=== PATIENT | female | born 1995 | race Two or more races ===

== ENCOUNTER 2024-04-06 21:53 | Emergency (ER) | payer OTHER ==
[~2024-04-06] VITALS: Ht 162.6 cm; Wt 77.1 kg
[2024-04-06] MEDS ORDERED: FAMOTIDINE/PF 20 MG in 0.9 % SODIUM CHLORIDE 8 ML IV PUSH STA (22:59)
[2024-04-06] MEDS ORDERED: RINGERS SOLUTION,LACTATED 1,000 ML IV SCH (23:00)
[2024-04-06] MEDS ORDERED: ONDANSETRON HCL 2 MG/ML VIAL IV ONE (23:00)
[2024-04-06] MEDS ORDERED: METOCLOPRAMIDE HCL 10 MG in DEXTROSE 5 % IN WATER 50 ML IV ONE (23:45)
[2024-04-06 23:49] LABS: HEMATOCRIT 36.8 % (36.0-45.00); HEMOGLOBIN 11.5 g/dL (12.0-15.00); MEAN CELL VOLUME 61.8 fL (80.00-100.00); MEAN CORPUSCULAR HEMOGLOBIN 19.3 pg (27.00-32.0); MEAN CORPUSCULAR HGB CONC 31.1 g/dl (32.0-36.0); PLATELET COUNT 429 K/uL (150-450); RED BLOOD COUNT 5.95 M/uL (4.00-6.00); RED CELL DISTRIBUTION WIDTH 17.4 % (11.5-14.5)
[2024-04-07 00:22] LABS: BILIRUBIN TOTAL 0.87 mg/dL (0.3-1.2); CALCIUM 9.6 mg/dL (8.5-10.1); CREATININE SERUM 0.63 mg/dL (0.55-1.02); GFR 113.35; GLOBULINA 4.8 G/DL (2.4-3.5); POTASSIUM 3.53 mEq/L (3.5-5.1); TOTAL PROTEIN 8.8 gm/dL (6.4-8.2)
== END 2024-04-07 02:00 | disposition home or self-care (01) ==
LOC: ER 21:55
PROVIDERS: General Practice
DX: O21.0 Mild hyperemesis gravidarum (principal); Z3A.09 9 weeks gestation of pregnancy

== ENCOUNTER 2024-04-18 06:18 | Emergency (ER) | payer OTHER ==
[~2024-04-18] VITALS: Ht 157.5 cm; Wt 81.6 kg
[2024-04-18] MEDS ORDERED: 0.9 % SODIUM CHLORIDE 1,000 ML IV STA (07:35)
[2024-04-18] MEDS ORDERED: PROMETHAZINE HCL 50 MG/ML AMPUL IM STA (07:36)
[2024-04-18] MEDS ORDERED: METOCLOPRAMIDE HCL 5 MG/ML VIAL IM STA (07:36)
[2024-04-18] MEDS ORDERED: LOPERAMIDE HCL 2 MG CAPSULE PO STA (07:37)
[2024-04-18] MEDS ORDERED: LOPERAMIDE HCL 2 MG CAPSULE PO ONE (07:41)
[2024-04-18] MEDS ORDERED: METOCLOPRAMIDE HCL 5 MG/ML VIAL ONE (07:42)
[2024-04-18] MEDS ORDERED: PROMETHAZINE HCL 50 MG/ML AMPUL IM ONE (07:42)
[2024-04-18 09:15] LABS: CALCIUM 10.2 mg/dL (8.5-10.1); CREATININE SERUM 0.61 mg/dL (0.55-1.02); GFR 117.65; POTASSIUM 4.71 mEq/L (3.5-5.1)
[2024-04-18 10:04] LABS: HEMATOCRIT 39.6 % (36.0-45.00); HEMOGLOBIN 12.3 g/dL (12.0-15.00); MEAN CORPUSCULAR HEMOGLOBIN 19.4 pg (27.00-32.0); MEAN CORPUSCULAR HGB CONC 31.2 g/dl (32.0-36.0); PLATELET COUNT 422 K/uL (150-450); RED BLOOD COUNT 6.35 M/uL (4.00-6.00); RED CELL DISTRIBUTION WIDTH 17.9 % (11.5-14.5)
[2024-04-18 10:09] LABS: MEAN CELL VOLUME 62.3 fL (80.00-100.00)
[2024-04-18] MEDS ORDERED: ZOFRAN8 MG PO (11:44)
[2024-04-18] MEDS ORDERED: PEPCID AC20 MG PO (11:44)
== END 2024-04-18 12:15 | disposition home or self-care (01) ==
LOC: ER 06:20
DX: K52.9 Noninfective gastroenteritis and colitis, unspecified (principal); O21.0 Mild hyperemesis gravidarum

== ENCOUNTER → 2024-07-07 08:33 | Outpatient (CLI) | payer OTHER ==
[~2024-07-07 08:33] MED LIST: PEPCID AC20 MG PO; ZOFRAN8 MG PO
== END | disposition home or self-care (01) ==
LOC: PRENATAL 08:33
PROVIDERS: ATTEND Obstetrics & Gynecology Maternal & Fetal Medicine
DX: O44.00 Complete placenta previa NOS or without hemorrhage, unspecified trimester (principal); O30.90 Multiple gestation, unspecified, unspecified trimester; O99.019 Anemia complicating pregnancy, unspecified trimester; Z3A.20 20 weeks gestation of pregnancy

== ENCOUNTER → 2024-08-17 | Outpatient (CLI) | payer OTHER | END | disposition home or self-care (01) | LOC: PRENATAL 15:06 | PROVIDERS: ATTEND Obstetrics & Gynecology Maternal & Fetal Medicine | DX: O26.849 Uterine size-date discrepancy, unspecified trimester (principal); O36.8199 Decreased fetal movements, unspecified trimester, other fetus; O30.90 Multiple gestation, unspecified, unspecified trimester; O99.019 Anemia complicating pregnancy, unspecified trimester; O13.9 Gestational [pregnancy-induced] hypertension without significant proteinuria, unspecified trimester; Z3A.26 26 weeks gestation of pregnancy ==

== ENCOUNTER → 2024-09-02 08:31 | Outpatient (CLI) | payer OTHER ==
[~2024-09-02 08:31] MED LIST changes: +IRON18 M1 PO; +PRENATAL TABLE1 EAC1 PO
== END | disposition home or self-care (01) ==
LOC: PRENATAL 08:31
PROVIDERS: ATTEND Obstetrics & Gynecology Maternal & Fetal Medicine
DX: O26.849 Uterine size-date discrepancy, unspecified trimester (principal); O36.8199 Decreased fetal movements, unspecified trimester, other fetus; O30.90 Multiple gestation, unspecified, unspecified trimester; O13.9 Gestational [pregnancy-induced] hypertension without significant proteinuria, unspecified trimester; O36.5990 Maternal care for other known or suspected poor fetal growth, unspecified trimester, not applicable or unspecified; Z3A.28 28 weeks gestation of pregnancy

== ENCOUNTER 2024-09-02 10:08 | Inpatient (IN) | payer OTHER ==
[~2024-09-02] VITALS: Ht 157.5 cm; Wt 95.3 kg
[~2024-09-02 10:08] MED LIST changes: -IRON18 M1 PO; -PRENATAL TABLE1 EAC1 PO
[2024-09-02] MEDS ORDERED: BETAMETHASONE ACETATE,SOD PHOS 30 MG/5 ML ML IM STA (10:11)
[2024-09-02] MEDS ORDERED: SODIUM CHLORIDE 0.45 % 1,000 ML IV SCH (10:15)
[2024-09-02 10:23] VITALS: BP 137/95; O2SAT 99
[2024-09-02] MEDS ORDERED: PRENATAL TABLE1 EAC1 PO (11:00)
[2024-09-02] MEDS ORDERED: IRON18 M1 PO (11:00)
[2024-09-02 11:28] LABS: BASO % 0.3 % (0.1-1.2); EOS # 0.09 (0.04-0.54); EOS % 0.8 % (0.7-7.0); HEMATOCRIT 35.7 % (34.1-44.9); LYMPH # 2.72 (1.18-3.74); LYMPH % 23.4 % (19.3-53.1); MEAN CORPUSCULAR HEMOGLOBIN 22.2 pg (25.6-32.2); MONO # 1.05 (0.24-0.82); NEUT # 7.67 (1.56-6.13); NEUT % 66.1 % (34.0-71.1); PLATELET COUNT 247 K/uL (163-369); RED BLOOD COUNT 4.96 M/uL (3.93-5.22)
[2024-09-02 11:30] LABS: URINE APPEARANCE Clear; URINE BILIRRUBIN Negative (NEGATIVE); URINE BLOOD Negative; URINE COLOR Yellow; URINE GLUCOSE Negative (NEGATIVE); URINE KETONE Negative (NEGATIVE); URINE LEUKOCYTE Small; URINE NITRATE Negative; URINE PROTEIN Negative (NEGATIVE); URINE UROBILINOGEN 0.2 E.U./dl
[2024-09-02 11:31] LABS: URINE EPITHELIAL CELLS 26.9 uL (0.0-38.8); URINE RBC 25.3 uL (0.0-20.8); URINE WBC 20.4 uL (0.0-23.2)
[2024-09-02 11:42] LABS: URINE CAST 0.14 uL (0.0-1.40); URINE YEAST FEW /hpf
[2024-09-02 11:52] LABS: FIBRINOGEN 486 mg/dL (187.0-446.0); INR < 0.93; PARTIAL THROMBOPLASTIN TIME 26.5 SECONDS (22.0-34.0); PROTHROMBIN TIME 10.2 SECONDS (9.0-11.5)
[2024-09-02 12:05] LABS: ALBUMIN 2.6 gm/dL (3.4-5.0); BILIRUBIN TOTAL 0.57 mg/dL (0.3-1.2); CALCIUM 8.6 mg/dL (8.5-10.1); CREATININE SERUM 0.54 mg/dL (0.55-1.02); GFR 135.42; GLOBULINA 3.6 G/DL (2.4-3.5); POTASSIUM 3.61 mEq/L (3.5-5.1); TOTAL PROTEIN 6.2 gm/dL (6.4-8.2)
[2024-09-02 15:30] VITALS: BP 124/77
[2024-09-02 19:35] VITALS: BP 143/83
[2024-09-02 23:21] VITALS: BP 127/78
[2024-09-03 04:06] VITALS: BP 125/83
[2024-09-03 06:18] VITALS: BP 122/74; O2SAT 97
[2024-09-03] MEDS ORDERED: LABETALOL HCL 100 MG TABLET PO SCH (09:00)
[2024-09-03] MEDS ORDERED: BETAMETHASONE ACETATE,SOD PHOS 30 MG/5 ML ML IM ONE (10:30)
[2024-09-03 11:00] VITALS: BP 110/71
[2024-09-03 11:21] LABS: URINE PROT QUANT 24HR 9.5 MG/DL
[2024-09-03 11:23] LABS: URINE PROT QUANT 24 HR 275.5 MG/24HR (42-225)
[2024-09-03 15:40] VITALS: BP 135/78
[2024-09-03] MEDS ORDERED: ACETAMINOPHEN 500 MG GEL..CAP PO ONE (19:00)
[2024-09-03 20:00] VITALS: BP 133/84
[2024-09-03 23:40] VITALS: BP 123/78
[2024-09-04 03:22] VITALS: BP 148/83
[2024-09-04] MEDS ORDERED: LABETALOL HCL100 MG PO (06:38)
[2024-09-04 07:22] VITALS: BP 131/82; O2SAT 97
== END 2024-09-04 08:41 | disposition home or self-care (01) | DRG 833 ==
LOC: LDR 10:08
PROVIDERS: ADMIT Obstetrics & Gynecology; ATTEND Obstetrics & Gynecology
PROC: 4A1HXCZ Monitoring of Products of Conception, Cardiac Rate, External Approach (ICD-10-PCS; principal; 2024-09-02)
DX: O36.5932 Maternal care for other known or suspected poor fetal growth, third trimester, fetus 2 (principal); O30.043 Twin pregnancy, dichorionic/diamniotic, third trimester; O13.3 Gestational [pregnancy-induced] hypertension without significant proteinuria, third trimester; Z3A.28 28 weeks gestation of pregnancy

== ENCOUNTER 2024-09-05 08:46 | Inpatient (IN) | payer OTHER ==
[~2024-09-05] VITALS: Ht 157.5 cm; Wt 95.3 kg
[~2024-09-05 08:46] MED LIST changes: -POVIDONE-IODINE 118 ML BOTT TOP ONE
[2024-09-05 09:00] VITALS: BP 138/93
[2024-09-05] MEDS ORDERED: MAGNESIUM SULFATE IN WATER 500 ML IV SCH (09:00)
[2024-09-05] MEDS ORDERED: RINGERS SOLUTION,LACTATED 1,000 ML IV SCH (09:00)
[2024-09-05] MEDS ORDERED: MAGNESIUM SULFATE IN WATER 4 GM/100 ML PIGGYBACK IV ONE (09:00)
[2024-09-05 09:22] LABS: PH,URINE 7.5 (5.0-8.0); URINE APPEARANCE Clear; URINE BILIRRUBIN Negative (NEGATIVE); URINE BLOOD Negative; URINE COLOR Yellow; URINE GLUCOSE Negative (NEGATIVE); URINE KETONE Negative (NEGATIVE); URINE LEUKOCYTE Large; URINE NITRATE Negative; URINE PROTEIN Negative (NEGATIVE); URINE UROBILINOGEN 0.2 E.U./dl
[2024-09-05 09:26] LABS: URINE EPITHELIAL CELLS 26.1 uL (0.0-38.8); URINE WBC 105.6 uL (0.0-23.2)
[2024-09-05 09:28] LABS: URINE CAST 0.29 uL (0.0-1.40); URINE RBC 1.1 uL (0.0-20.8)
[2024-09-05 09:47] LABS: ALBUMIN 2.7 gm/dL (3.4-5.0); BILIRUBIN TOTAL 0.43 mg/dL (0.3-1.2); CALCIUM 8.5 mg/dL (8.5-10.1); CREATININE SERUM 0.52 mg/dL (0.55-1.02); GFR 141.45; GLOBULINA 3.4 G/DL (2.4-3.5); POTASSIUM 3.68 mEq/L (3.5-5.1); TOTAL PROTEIN 6.1 gm/dL (6.4-8.2)
[2024-09-05 09:52] LABS: INR < 0.93
[2024-09-05] MEDS ORDERED: KETOROLAC TROMETHAMINE 60 MG VIAL IM ONE ×2 (09:53→10:05)
[2024-09-05 11:08] LABS: BASO % 0.3 % (0.1-1.2); EOS # 0.01 (0.04-0.54); EOS % 0.1 % (0.7-7.0); HEMATOCRIT 32.2 % (34.1-44.9); LYMPH # 3.46 (1.18-3.74); LYMPH % 22.7 % (19.3-53.1); MEAN CORPUSCULAR HEMOGLOBIN 22.2 pg (25.6-32.2); MONO # 1.52 (0.24-0.82); NEUT # 10.12 (1.56-6.13); NEUT % 66.4 % (34.0-71.1); PLATELET COUNT 227 K/uL (163-369); RED BLOOD COUNT 4.46 M/uL (3.93-5.22)
[2024-09-05 11:09] LABS: HEMOGLOBIN 9.9 g/dL (11.2-15.7)
[2024-09-05 15:36] VITALS: BP 136/81
[2024-09-05] MEDS ORDERED: LABETALOL HCL 100 MG TABLET PO SCH (17:00)
[2024-09-05 17:56] VITALS: BP 136/86
[2024-09-05] MEDS ORDERED: MORPHINE SULFATE 4 MG/ML VIAL IV ONE (18:00)
[2024-09-05 19:27] VITALS: BP 143/87
[2024-09-05] MEDS ORDERED: ONDANSETRON HCL 2 MG/ML VIAL ONE (21:26)
[2024-09-05] MEDS ORDERED: ONDANSETRON HCL 2 MG/ML VIAL IV PRN (21:45)
[2024-09-05 23:26] VITALS: BP 133/83
[2024-09-06 04:05] VITALS: BP 128/80
[2024-09-06 07:16] VITALS: BP 152/90
[2024-09-06] MEDS ORDERED: KETOROLAC TROMETHAMINE 60 MG VIAL IM ONE ×2 (07:23→07:45)
[2024-09-06 08:32] LABS: PH,URINE 6.5 (5.0-8.0); URINE APPEARANCE Clear; URINE BILIRRUBIN Negative (NEGATIVE); URINE BLOOD Negative; URINE COLOR Yellow; URINE GLUCOSE Negative (NEGATIVE); URINE KETONE 15 (NEGATIVE); URINE LEUKOCYTE Moderate; URINE NITRATE Negative; URINE PROTEIN Negative (NEGATIVE); URINE UROBILINOGEN 0.2 E.U./dl
[2024-09-06 08:35] LABS: URINE BACTERIA 2285.1 uL (0.0-1933); URINE EPITHELIAL CELLS 22.1 uL (0.0-38.8); URINE RBC 5.5 uL (0.0-20.8); URINE WBC 30.2 uL (0.0-23.2)
[2024-09-06 08:47] LABS: BASO % 0.2 % (0.1-1.2); HEMATOCRIT 34.4 % (34.1-44.9); HEMOGLOBIN 10.6 g/dL (11.2-15.7); LYMPH # 1.28 (1.18-3.74); LYMPH % 9.2 % (19.3-53.1); MEAN CORPUSCULAR HEMOGLOBIN 22.4 pg (25.6-32.2); MONO % 6.5 % (4.7-12.5); NEUT # 11.62 (1.56-6.13); NEUT % 83.6 % (34.0-71.1); PLATELET COUNT 236 K/uL (163-369); RED BLOOD COUNT 4.74 M/uL (3.93-5.22); RED CELL DISTRIBUTION WIDTH 16.7 % (11.6-14.4)
[2024-09-06] MEDS ORDERED: LABETALOL HCL 200 MG TABLET PO SCH (09:00)
[2024-09-06 09:06] LABS: ALBUMIN 2.7 gm/dL (3.4-5.0); BILIRUBIN TOTAL 0.91 mg/dL (0.3-1.2); CALCIUM 6.9 mg/dL (8.5-10.1); CREATININE SERUM 0.52 mg/dL (0.55-1.02); GFR 141.45; GLOBULINA 3.7 G/DL (2.4-3.5); POTASSIUM 3.35 mEq/L (3.5-5.1); TOTAL PROTEIN 6.4 gm/dL (6.4-8.2)
[2024-09-06 09:10] LABS: URINE CAST 0.14 uL (0.0-1.40); URINE MUCUS SCANT
[2024-09-06] MEDS ORDERED: CEFAZOLIN SODIUM 1,000 MG VIAL ONE (09:18)
[2024-09-06] MEDS ORDERED: CEFAZOLIN SODIUM 1,000 MG VIAL IV ONE (09:30)
[2024-09-06 11:48] VITALS: BP 122/80
[2024-09-06] MEDS ORDERED: CEFAZOLIN SODIUM 1,000 MG VIAL IV SCH (14:00)
[2024-09-06 15:13] VITALS: BP 129/83
[2024-09-06] MEDS ORDERED: ACETAMINOPHEN 500 MG GEL..CAP PO ONE (18:43)
[2024-09-06 18:45] VITALS: BP 129/79
[2024-09-06] MEDS ORDERED: ACETAMINOPHEN 500 MG GEL..CAP PO PRN (19:00)
[2024-09-06 23:10] VITALS: BP 131/78
[2024-09-07 04:00] VITALS: BP 131/74
[2024-09-07 06:15] VITALS: BP 137/78; O2SAT 97
[2024-09-07 11:39] VITALS: BP 143/88; O2SAT 97
[2024-09-07 15:07] VITALS: BP 138/85
[2024-09-07 19:00] VITALS: BP 143/87
[2024-09-07] MEDS ORDERED: DOCUSATE SODIUM 100MG CAP PO SCH (22:45)
[2024-09-07 23:14] VITALS: BP 147/92
[2024-09-08 04:10] VITALS: BP 145/84
[2024-09-08 06:20] VITALS: BP 148/77; O2SAT 97
[2024-09-08 11:36] VITALS: BP 124/76
[2024-09-08 15:30] VITALS: BP 136/86
[2024-09-08 20:03] VITALS: BP 132/82
[2024-09-08 23:39] VITALS: BP 147/90
[2024-09-09 03:14] VITALS: BP 137/84
[2024-09-09 06:32] VITALS: BP 147/91; O2SAT 97
[2024-09-09 10:40] VITALS: BP 149/98
[2024-09-09 15:45] VITALS: BP 142/87
[2024-09-09 19:54] VITALS: BP 144/91
[2024-09-09] MEDS ORDERED: LABETALOL HCL 100 MG TABLET PO ONE (20:52)
[2024-09-09] MEDS ORDERED: LABETALOL HCL 200 MG TABLET PO ONE (21:15)
[2024-09-09] MEDS ORDERED: LABETALOL HCL 200 MG TABLET PO SCH (21:17)
[2024-09-09 23:19] VITALS: BP 138/79
[2024-09-10 04:12] VITALS: BP 144/83
[2024-09-10 06:21] VITALS: BP 145/77; O2SAT 97
[2024-09-10] MEDS ORDERED: LABETALOL HCL 200 MG TABLET PO SCH (09:00)
[2024-09-10 10:59] VITALS: BP 129/82; O2SAT 97
== END 2024-09-10 14:23 | disposition home or self-care (01) | DRG 833 ==
LOC: LDR 08:46
PROVIDERS: Specialist; ADMIT Obstetrics & Gynecology; ATTEND Obstetrics & Gynecology
PROC: 4A1HXCZ Monitoring of Products of Conception, Cardiac Rate, External Approach (ICD-10-PCS; principal; 2024-09-05)
PROC: BW40ZZZ Ultrasonography of Abdomen (ICD-10-PCS; 2024-09-05)
PROC: BY4GZZZ Ultrasonography of Third Trimester, Multiple Gestation (ICD-10-PCS; 2024-09-05)
PROC: BY4GZZZ Ultrasonography of Third Trimester, Multiple Gestation (ICD-10-PCS; 2024-09-05)
PROC: BY47ZZZ Ultrasonography of Fetal Umbilical Cord (ICD-10-PCS; 2024-09-05)
DX: O26.893 Other specified pregnancy related conditions, third trimester (principal); O30.043 Twin pregnancy, dichorionic/diamniotic, third trimester; O36.5932 Maternal care for other known or suspected poor fetal growth, third trimester, fetus 2; O13.3 Gestational [pregnancy-induced] hypertension without significant proteinuria, third trimester; O36.8132 Decreased fetal movements, third trimester, fetus 2; R10.11 Right upper quadrant pain; Z3A.29 29 weeks gestation of pregnancy

== ENCOUNTER → 2024-09-05 | Emergency (ER) | payer OTHER ==
[~2024-09-05] MED LIST changes: +IRON18 M1 PO; +LABETALOL HCL100 MG PO; +POVIDONE-IODINE 118 ML BOTT TOP ONE; +PRENATAL TABLE1 EAC1 PO
== END | disposition left against medical advice (07) ==
LOC: ER 07:38
DX: Z53.21 Procedure and treatment not carried out due to patient leaving prior to being seen by health care provider (principal)

== ENCOUNTER 2024-09-15 16:39 | Inpatient (IN) | payer OTHER ==
[~2024-09-15] VITALS: Ht 157.5 cm; Wt 0.9 kg
[2024-09-15 16:43] VITALS: BP 157/99
[2024-09-15 17:26] LABS: PH,URINE 6.5 (5.0-8.0); URINE APPEARANCE Cloudy; URINE BILIRRUBIN Negative (NEGATIVE); URINE BLOOD Negative; URINE COLOR Yellow; URINE GLUCOSE Negative (NEGATIVE); URINE KETONE Negative (NEGATIVE); URINE LEUKOCYTE Trace; URINE NITRATE Negative; URINE UROBILINOGEN 0.2 E.U./dl
[2024-09-15 17:27] LABS: BASO % 0.3 % (0.1-1.2); EOS # 0.04 (0.04-0.54); EOS % 0.3 % (0.7-7.0); HEMATOCRIT 33.3 % (34.1-44.9); HEMOGLOBIN 10.5 g/dL (11.2-15.7); LYMPH # 2.35 (1.18-3.74); LYMPH % 16.4 % (19.3-53.1); MEAN CORPUSCULAR HEMOGLOBIN 22.3 pg (25.6-32.2); MONO # 1.04 (0.24-0.82); MONO % 7.3 % (4.7-12.5); NEUT % 75.5 % (34.0-71.1); PLATELET COUNT 194 K/uL (163-369); RED CELL DISTRIBUTION WIDTH 16.1 % (11.6-14.4)
[2024-09-15 17:28] LABS: URINE BACTERIA 6859.2 uL (0.0-1933); URINE EPITHELIAL CELLS 36.7 uL (0.0-38.8); URINE RBC 3.9 uL (0.0-20.8); URINE WBC 78.8 uL (0.0-23.2)
[2024-09-15] MEDS ORDERED: LABETALOL HCL 200 MG TABLET PO SCH (18:00)
[2024-09-15] MEDS ORDERED: SODIUM CHLORIDE 0.45 % 1,000 ML IV SCH (18:00)
[2024-09-15 18:01] LABS: INR < 0.93; PARTIAL THROMBOPLASTIN TIME 29.6 SECONDS (22.0-34.0); PROTHROMBIN TIME 10.1 SECONDS (9.0-11.5)
[2024-09-15 18:19] LABS: URINE PROTEIN 300 (NEGATIVE)
[2024-09-15 18:20] LABS: URINE MUCUS SCANT
[2024-09-15 18:21] LABS: URINE YEAST FEW /hpf
[2024-09-15 18:50] VITALS: BP 163/104
[2024-09-15 18:56] LABS: FIBRINOGEN 653 mg/dL (187.0-446.0)
[2024-09-15] MEDS ORDERED: BETAMETHASONE ACETATE,SOD PHOS 30 MG/5 ML ML ONE (19:08)
[2024-09-15] MEDS ORDERED: MAGNESIUM SULFATE IN WATER 0.04 GM/ML IV.SOLN IV ONE (19:08)
[2024-09-15] MEDS ORDERED: MAGNESIUM SULFATE IN WATER 4 GM/100 ML PIGGYBACK IV ONE (19:08)
[2024-09-15] MEDS ORDERED: BETAMETHASONE ACETATE,SOD PHOS 30 MG/5 ML ML IM STA (19:21)
[2024-09-15 19:23] LABS: POTASSIUM 3.45 mEq/L (3.5-5.1)
[2024-09-15] MEDS ORDERED: MAGNESIUM SULFATE IN WATER 500 ML IV SCH (19:30)
[2024-09-15] MEDS ORDERED: MAGNESIUM SULFATE IN WATER 100 ML IV ONE (19:30)
[2024-09-15 19:31] LABS: ALBUMIN 2.3 gm/dL (3.4-5.0); BILIRUBIN TOTAL 0.58 mg/dL (0.3-1.2); CALCIUM 8.7 mg/dL (8.5-10.1); CREATININE SERUM 0.6 mg/dL (0.55-1.02); GFR 119.92; GLOBULINA 3.6 G/DL (2.4-3.5); TOTAL PROTEIN 5.9 gm/dL (6.4-8.2)
[2024-09-15 20:00] VITALS: BP 151/94
[2024-09-15 23:24] VITALS: BP 145/83
[2024-09-16 03:16] VITALS: BP 143/92
[2024-09-16 06:16] VITALS: BP 153/96; O2SAT 97
[2024-09-16 07:33] VITALS: BP 150/93
[2024-09-16] MEDS ORDERED: ACETAMINOPHEN 500 MG GEL..CAP PO PRN (08:15)
[2024-09-16] MEDS ORDERED: LABETALOL HCL 100 MG TABLET PO NR (08:45)
[2024-09-16] MEDS ORDERED: SOD FERRIC GLUC COMPLX/SUCROSE 125 MG in 0.9 % SODIUM CHLORIDE 100 ML IV SCH (09:00)
[2024-09-16] MEDS ORDERED: LABETALOL HCL 200 MG TABLET PO SCH (09:00)
[2024-09-16 11:39] VITALS: BP 135/86; O2SAT 97
[2024-09-16] MEDS ORDERED: LABETALOL HCL 300 MG TABLET PO SCH (13:00)
[2024-09-16] MEDS ORDERED: PROMETHAZINE HCL 25 MG/ML AMPUL ONE (13:52)
[2024-09-16 14:12] LABS: CREATININE URINE RANDOM 55.3 MG/DL (30-125)
[2024-09-16] MEDS ORDERED: PROMETHAZINE HCL 25 MG/ML AMPUL IV ONE (14:15)
[2024-09-16] MEDS ORDERED: BETAMETHASONE ACETATE,SOD PHOS 30 MG/5 ML ML ONE (14:42)
[2024-09-16 15:20] LABS: BASO % 0.2 % (0.1-1.2); HEMATOCRIT 35.4 % (34.1-44.9); HEMOGLOBIN 10.9 g/dL (11.2-15.7); LYMPH # 1.58 (1.18-3.74); MEAN CORPUSCULAR HEMOGLOBIN 22.3 pg (25.6-32.2); MONO # 0.69 (0.24-0.82); MONO % 5.2 % (4.7-12.5); NEUT # 10.82 (1.56-6.13); NEUT % 81.9 % (34.0-71.1); PLATELET COUNT 211 K/uL (163-369); RED BLOOD COUNT 4.89 M/uL (3.93-5.22); RED CELL DISTRIBUTION WIDTH 16.5 % (11.6-14.4)
[2024-09-16 15:27] VITALS: BP 130/87
[2024-09-16 15:28] LABS: ALT/SGPT 11 U/L (12-78); AST/SGOT 14 U/L (15-37)
[2024-09-16 15:41] LABS: INR < 0.93; PARTIAL THROMBOPLASTIN TIME 31.5 SECONDS (22.0-34.0); PROTHROMBIN TIME 9.9 SECONDS (9.0-11.5)
[2024-09-16] MEDS ORDERED: ERYTHROMYCIN BASE OPHT 1GM EACH TUBE OP ONE (17:39)
[2024-09-16] MEDS ORDERED: OXYTOCIN 10 UNITS/ML VIAL ONE ×2 (17:39→23:10)
[2024-09-16] MEDS ORDERED: CEFAZOLIN SODIUM 1,000 MG VIAL IV STA (18:44)
[2024-09-16] MEDS ORDERED: BETAMETHASONE ACETATE,SOD PHOS 30 MG/5 ML ML IM ONE (19:20)
[2024-09-16] MEDS ORDERED: MORPHINE SULFATE 4 MG/ML VIAL IV ONE ×2 (21:05→21:35)
[2024-09-16] MEDS ORDERED: KETOROLAC TROMETHAMINE 60 MG VIAL IM STA (21:20)
[2024-09-16] MEDS ORDERED: MORPHINE SULFATE 4 MG/ML CARTRIDGE IV PRN (21:30)
[2024-09-16] MEDS ORDERED: OXYTOCIN 1,000 ML IV SCH (21:30)
[2024-09-16] MEDS ORDERED: CHLORHEXIDINE GLUCONATE 120 ML BOTTLE TOP ONE (21:30)
[2024-09-16] MEDS ORDERED: RINGERS SOLUTION,LACTATED 1,000 ML IV SCH (21:30)
[2024-09-16] MEDS ORDERED: MAGNESIUM SULFATE IN WATER 0.04 GM/ML IV.SOLN IV ONE (21:41)
[2024-09-17 01:05] VITALS: BP 133/85
[2024-09-17 01:15] LABS: BASO % 0.1 % (0.1-1.2); HEMATOCRIT 34.8 % (34.1-44.9); LYMPH # 1.23 (1.18-3.74); LYMPH % 5.5 % (19.3-53.1); MONO # 1.63 (0.24-0.82); MONO % 7.2 % (4.7-12.5); NEUT # 19.47 (1.56-6.13); NEUT % 86.4 % (34.0-71.1); PLATELET COUNT 213 K/uL (163-369); RED BLOOD COUNT 4.77 M/uL (3.93-5.22); RED CELL DISTRIBUTION WIDTH 16.6 % (11.6-14.4)
[2024-09-17 01:21] LABS: HEMOGLOBIN 10.5 g/dL (11.2-15.7)
[2024-09-17 06:25] VITALS: BP 129/83; O2SAT 97
[2024-09-17] MEDS ORDERED: ACETAMINOPHEN WITH CODEINE 1 UDTAB TABLET PO PRN (09:00)
[2024-09-17 12:10] VITALS: BP 124/79
[2024-09-17 15:09] VITALS: BP 118/72
[2024-09-17 16:30] VITALS: BP 117/78; O2SAT 94
[2024-09-17 20:00] VITALS: BP 116/71
[2024-09-18 01:30] VITALS: BP 128/78
[2024-09-18 09:20] VITALS: BP 142/89
[2024-09-18 16:46] VITALS: BP 125/74
[2024-09-19] VITALS: BP 148/84
[2024-09-19] MEDS ORDERED: PIPERACILLIN/TAZOBACTAM SODIUM 3.375 GM VIAL IV SCH (02:00)
[2024-09-19] MEDS ORDERED: DOCUSATE SODIUM 100MG CAP PO SCH (09:00)
[2024-09-19 12:54] VITALS: BP 146/84
[2024-09-19 14:59] VITALS: BP 138/80
[2024-09-19 17:20] VITALS: BP 160/99
[2024-09-19 21:40] VITALS: BP 147/97
[2024-09-20 00:49] VITALS: BP 140/90
[2024-09-20 06:31] VITALS: BP 149/95
[2024-09-20 10:18] VITALS: BP 147/89
[2024-09-20] MEDS ORDERED: CHLORHEXIDINE GLUCONATE 120 ML BOTTLE TOP SCH (10:38)
[2024-09-20 16:10] VITALS: BP 148/80
[2024-09-21 00:18] VITALS: BP 140/88
[2024-09-21 08:00] VITALS: BP 145/85
[2024-09-21 14:35] LABS: BASO % 0.2 % (0.1-1.2); EOS # 0.39 (0.04-0.54); EOS % 2.2 % (0.7-7.0); HEMATOCRIT 27.4 % (34.1-44.9); LYMPH # 3.57 (1.18-3.74); MEAN CORPUSCULAR HEMOGLOBIN 23.2 pg (25.6-32.2); MONO # 1.08 (0.24-0.82); NEUT # 12.48 (1.56-6.13); NEUT % 69.9 % (34.0-71.1); PLATELET COUNT 354 K/uL (163-369); RED BLOOD COUNT 3.57 M/uL (3.93-5.22); RED CELL DISTRIBUTION WIDTH 19.3 % (11.6-14.4)
[2024-09-21 14:50] LABS: HEMOGLOBIN 8.3 g/dL (11.2-15.7)
[2024-09-21 16:00] VITALS: BP 139/90
[2024-09-22] VITALS: BP 138/89
[2024-09-22 08:00] VITALS: BP 135/75
[2024-09-22 16:30] VITALS: BP 127/79
[2024-09-23] VITALS: BP 140/80
[2024-09-23 07:04] LABS: BASO % 0.2 % (0.1-1.2); EOS % 2.5 % (0.7-7.0); LYMPH # 2.86 (1.18-3.74); LYMPH % 23.6 % (19.3-53.1); MEAN CORPUSCULAR HEMOGLOBIN 23.4 pg (25.6-32.2); MONO # 0.85 (0.24-0.82); NEUT # 7.97 (1.56-6.13); NEUT % 65.8 % (34.0-71.1); PLATELET COUNT 394 K/uL (163-369); RED BLOOD COUNT 3.72 M/uL (3.93-5.22); RED CELL DISTRIBUTION WIDTH 20.3 % (11.6-14.4)
[2024-09-23 07:08] LABS: HEMOGLOBIN 8.7 g/dL (11.2-15.7)
[2024-09-23 08:55] VITALS: BP 140/85
[2024-09-23 14:21] VITALS: BP 143/90
== END 2024-09-23 18:08 | disposition home or self-care (01) | DRG 786 ==
LOC: LDR 16:39 → OB/GYN 09-16 21:09 → LDR 09-16 22:08 → OB/GYN 09-17 14:06
PROVIDERS: Obstetrics & Gynecology Maternal & Fetal Medicine; ADMIT Obstetrics & Gynecology; ATTEND Obstetrics & Gynecology
PROC: BY4GZZZ Ultrasonography of Third Trimester, Multiple Gestation (ICD-10-PCS; 2024-09-15)
PROC: BY47ZZZ Ultrasonography of Fetal Umbilical Cord (ICD-10-PCS; 2024-09-15)
PROC: 4A1HXCZ Monitoring of Products of Conception, Cardiac Rate, External Approach (ICD-10-PCS; 2024-09-15)
PROC: 10D00Z1 Extraction of Products of Conception, Low, Open Approach (ICD-10-PCS; principal; 2024-09-16 17:00)
PROC: BU4CZZZ Ultrasonography of Uterus and Ovaries (ICD-10-PCS; 2024-09-18)
PROC: BU4CZZZ Ultrasonography of Uterus and Ovaries (ICD-10-PCS; 2024-09-22)
DX: O32.1XX1 Maternal care for breech presentation, fetus 1 (principal); O60.14X2 Preterm labor third trimester with preterm delivery third trimester, fetus 2; O36.5931 Maternal care for other known or suspected poor fetal growth, third trimester, fetus 1; O36.8132 Decreased fetal movements, third trimester, fetus 2; O31.8X32 Other complications specific to multiple gestation, third trimester, fetus 2; O30.043 Twin pregnancy, dichorionic/diamniotic, third trimester; O90.2 Hematoma of obstetric wound; O36.5932 Maternal care for other known or suspected poor fetal growth, third trimester, fetus 2; O26.843 Uterine size-date discrepancy, third trimester; O13.4 Gestational [pregnancy-induced] hypertension without significant proteinuria, complicating childbirth; Z37.2 Twins, both liveborn; Z3A.30 30 weeks gestation of pregnancy